=== PATIENT | male | born 1980 | race Caucasian/White ===

== ENCOUNTER 2018-01-31 19:26 | Emergency (ER) | payer BC, OTHER ==
[~2018-01-31] VITALS: Ht 182.9 cm; Wt 163.3 kg
[~2018-01-31 19:26] MED LIST: ADIPEX-P37.5 MG PO; AMBEREN; ANTIPYRINE-BENZ10 ML OT; CLOTRIMAZOLE 1%15 G1; CLOZAPINE200 MG; CYMBALTA PO; CYMBALTA60 MG PO; DIFLUCAN PO; DOXYCYCLINE 10100 MG PO; IBUPROFEN 800800 M1; NORCO 5-325 TA1 EACH PO; PRILOSEC OTC20 MG PO; ZOFRAN ODT4 MG PO
[2018-01-31 21:23] VITALS: BP 134/72
== END 2018-01-31 21:24 | disposition home or self-care (01) ==
LOC: ER 19:26
DX: S61.211A Laceration without foreign body of left index finger without damage to nail, initial encounter (principal); W26.0XXA Contact with knife, initial encounter; Y93.89 Activity, other specified; Y92.89 Other specified places as the place of occurrence of the external cause; Y99.8 Other external cause status

== ENCOUNTER 2019-03-09 20:22 | Emergency (ER) | payer BC, OTHER ==
[~2019-03-09] VITALS: Ht 182.9 cm; Wt 165.6 kg
[2019-03-09] MEDS ORDERED: MOBIC15 MG PO (22:08)
[2019-03-09] MEDS ORDERED: VALIUM5 MG PO (22:08)
[2019-03-09 23:14] VITALS: BP 118/68
== END 2019-03-09 23:14 | disposition home or self-care (01) ==
LOC: ER 20:22
DX: S34.139A Unspecified injury to sacral spinal cord, initial encounter (principal); S90.811A Abrasion, right foot, initial encounter; G47.30 Sleep apnea, unspecified; F17.210 Nicotine dependence, cigarettes, uncomplicated; Z88.8 Allergy status to other drugs, medicaments and biological substances; V49.49XA Driver injured in collision with other motor vehicles in traffic accident, initial encounter; Y93.I9 Activity, other involving external motion; Y92.410 Unspecified street and highway as the place of occurrence of the external cause; Y99.8 Other external cause status

== ENCOUNTER → 2021-04-18 | Outpatient (CLI) | payer OTHER ==
[~2021-04-18] MED LIST changes: +MOBIC15 MG PO; +VALIUM5 MG PO
== END ==
LOC: RAD 14:20
PROVIDERS: ATTEND Family Medicine
DX: M17.11 Unilateral primary osteoarthritis, right knee (principal)

== ENCOUNTER 2021-08-14 11:34 | Inpatient (IN) | payer OTHER ==
[~2021-08-14] VITALS: Ht 185.4 cm; Wt 190.5 kg
[2021-08-14 11:41] VITALS: BP 152/92
[2021-08-14 13:01] LABS: ABSOLUTE NEUTROPHILS 8.8 thou/uL (1.4-8.2); BASOPHILS 0.4 % (0.0-2.0); EOSINOPHILS 2.8 % (0.0-3.0); HEMATOCRIT 44.6 % (42.0-52.0); HEMOGLOBIN 14.6 gm/dL (14.0-18.0); LYMPHOCYTES 11.6 % (24.0-44.0); MCH 27.2 pg (26.0-34.0); MCHC 32.7 g/dL (28.0-37.0); MONOCYTES 9.3 % (1.0-8.0); PLATELET COUNT 336 thou/uL (150-400); POLYS 75.9 % (36.0-66.0); RBC 5.38 mil/uL (4.50-6.00); RDW 15.2 % (10.5-14.5); WBC 11.5 thou/uL (4.0-11.0)
[2021-08-14 13:27] LABS: ANION GAP 10 mmol/L (7-16); BUN 22 mg/dL (7-18); CALCIUM 8.6 mg/dL (8.5-10.1); CHLORIDE 97 mmol/L (98-107); CO2 29 mmol/L (21-32); CREATININE 1.3 mg/dL (0.7-1.3); GLUCOSE 170 mg/dL (74-106); POTASSIUM 3.3 mmol/L (3.5-5.1); SODIUM 136 mmol/L (136-145)
[2021-08-14 13:38] LABS: ALBUMIN 2.6 g/dL (3.4-5.0); DIRECT BILIRUBIN 0.6 mg/dL (<0.1-0.2); LIPASE 76 U/L (73-393); SGOT 125 U/L (15-37); SGPT 163 U/L (16-63); TOTAL PROTEIN 7.5 g/dL (6.4-8.2)
[2021-08-14 15:23] VITALS: BP 129/79
[2021-08-14] MEDS ORDERED: CLOZAPINE100 MG PO (16:29)
[2021-08-14] MEDS ORDERED: TRAMADOL 50 MG50 MG PO (16:32)
[2021-08-14] MEDS ORDERED: BUSPIRONE HCL10 MG PO (16:35)
[2021-08-14 16:36] VITALS: BP 148/98
[2021-08-14 17:35] LABS: URINE BILIRUBIN NEGATIVE (Negative); URINE BLOOD TRACE (Negative); URINE CLARITY CLEAR; URINE GLUCOSE-RANDOM* NEGATIVE (Negative); URINE KETONES NEGATIVE (Negative); URINE LEUKOCYTES-REFLEX NEGATIVE (Negative); URINE NITRITE-REFLEX NEGATIVE (Negative); URINE PROTEIN (DIPSTICK) TRACE (Negative)
[2021-08-14 17:36] LABS: URINE COLOR AMBER
--- NOTE | 2021-08-14 17:56 | NUR ---
PT ADMITED FROM ER. ADMISSION HX AND ASSESSMENT COMPLETED. PT ALERT AND ORIENTED. VSS. PRN PAIN MED AND NAUSIA MED GIVEN WITH PARTIAL RELIEF. NEW ORDERS NOTED. NO COMCERNS AT THIS TIME.
[2021-08-14 19:07] VITALS: BP 135/84
[2021-08-15 03:47] VITALS: BP 145/87
--- NOTE | 2021-08-15 04:40 | NUR ---
Pt. rested quietly at intervals during the night when checked on during frequent rounds. He c/o abdominal pain and ivp pain meds given (see emar) with relief noted. No c/o nausea or emesis. Assisted with urinal at the bedside.
[2021-08-15 06:20] LABS: HEMATOCRIT 41.3 % (42.0-52.0); MCH 28.2 pg (26.0-34.0); MCHC 33.9 g/dL (28.0-37.0); MCV 83.2 fL (80.0-100.0); PLATELET COUNT 313 thou/uL (150-400); RBC 4.96 mil/uL (4.50-6.00); RDW 15.1 % (10.5-14.5); WBC 8.7 thou/uL (4.0-11.0)
[2021-08-15 06:46] LABS: ALBUMIN 2.6 g/dL (3.4-5.0); CALCIUM 8.5 mg/dL (8.5-10.1); POTASSIUM 3.3 mmol/L (3.5-5.1); TOTAL BILIRUBIN 0.9 mg/dL (0.2-1.0); TOTAL PROTEIN 7.4 g/dL (6.4-8.2)
--- NOTE | 2021-08-15 07:13 | EKG ---
[address] [address] ELECTROCARDIOGRAM REPORT Name: SHELBY HITCHCOCK Room #: 450-P ADM IN M.R.#: [id number] Admission: 08/14/21 Attend Phys: Alex Wheeler MD, FAAF Discharge: Date of : 84 Report #: [id number] [facility] ED Test Date: 2021-08-14 Test Time: 12:15:19 Pat Name: SHELBY HITCHCOCK Department: Room: 450 Gender: M Claim Analyst: edinson : 1980 Requested By: Nash Shah Order Number: [id number] MD: Cornelius Rivera Measurements Intervals [place] Rate: 115 P: 64 FL: 145 QRS: 79 QRSD: 112 T: 39 QT: 386 QTc: 534 Interpretive Statements Sinus tachycardia Borderline intraventricular conduction delay Prolonged QT interval Compared to ECG 08/19/2016 07:45:22 Prolonged QT interval now present Sinus rhythm no longer present Electronically Signed On 08-15-2021 7:12:46 CDT by Cornelius Rivera [email or web address] <ELECTRONICALLY SIGNED> By: Cornelius Rivera MD, [facility] 08/15/21 0712 1215 121 Cornelius Rivera MD, FACC /EPI
[2021-08-15 08:59] VITALS: BP 134/74
[2021-08-15 09:44] LABS: ABSOLUTE NEUTROPHILS 6.8 thou/uL (1.4-8.2)
[2021-08-15 09:45] LABS: ANISOCYTOSIS SLIGHT
--- NOTE | 2021-08-15 15:09 | NUR ---
ASSUMED CARE AT SHIFT CHANGE. PT A/O X 4, C/O RUQ AND LUQ ABD PAIN WITH NAUSEA TODAY. CONTROLLED WITH PRN MEDS, NO VOMITING THUS FAR TODAY. PAIN RELIEF WITH REPOSITIONING ALSO. BM T-5 DAYS AGO. WILL REQUEST PRN MEDS. VOIDING PER URINAL- DARK ERICK UO. ASSESSMENTS PER CHART. LABS NOTED. PT DIAPHORETIC THIS AFETERNOON, STATES ROOM IS HOT. AC DOES NOT SEEM TO BE WORKING, MAINTENACE ORDER PLACED. FAN ON FOR PT COMFORT. DENIES ANY OTHER NEEDS. WILL CONT TO MONITOR AND FOLLOW POC.
--- NOTE | 2021-08-15 15:13 | NUR ---
PT ADMITTED RELATED TO ABD PAIN, NAUSEA, VOMITING, PANCREATITIS. CM REVIEWED CHART AND SPOKE WITH CARE TEAM. CM MET WITH PT AT BEDSIDE THIS DAY. PT APPEARED TO BE A&O X4. CM ROLE INTRODUCED. PT INDICATED HE LIVES IN A HOUSE WITH HIS PARENTS AND BROTHERS. PT RESIDES IN THE BASEMENT THERE ARE 13 STEP DOWN AND 2 TO ENTER THE HOME. PT INDICATED HE HAD BEEN USING A CANE TO ASSIST WITH MOBILITY DIRECTOR PROSPECT FOLLOWING A KNEE SURGERY AND HAD BEEN DOING OP PT AT [facility] ON [address]. PT INDICATED HE HAS A CPAP FOR HOME USE. PT PLANS TO RETURN HOME ONCE MEDICALLY STABLE AND RESUME OP PT. CM FOLLOWING REGARDING DC PLANNING.
[2021-08-15 15:44] VITALS: BP 154/101
[2021-08-15 20:04] VITALS: BP 118/75
--- NOTE | 2021-08-16 02:41 | NUR ---
PT IS A/O X4 AND IS UP WITH SBA TO THE BR. USES A URINAL AT THE BEDSIDE. ROOM AIR, VSS AFEBRILE. C/O PAIN. PRN PAIN MEDICATION GIVEN DIRECTED. PT IS PLEASANT AND COOPERATIVE. FALL PRECUATIONS IN PLACE,CALL LIGHT IS WITHIN REACH. PT CALLS OUT APPROPRIATELY FOR ASSISTANCE.
[2021-08-16 05:26] LABS: HEMATOCRIT 38.6 % (42.0-52.0); HEMOGLOBIN 13.3 gm/dL (14.0-18.0); MCH 28.8 pg (26.0-34.0); MCHC 34.5 g/dL (28.0-37.0); MCV 83.7 fL (80.0-100.0); PLATELET COUNT 306 thou/uL (150-400); RBC 4.61 mil/uL (4.50-6.00); WBC 6.1 thou/uL (4.0-11.0)
[2021-08-16 05:38] LABS: ALBUMIN 2.5 g/dL (3.4-5.0); CALCIUM 8.6 mg/dL (8.5-10.1); CREATININE 0.9 mg/dL (0.7-1.3); POTASSIUM 3.3 mmol/L (3.5-5.1); TOTAL BILIRUBIN 0.6 mg/dL (0.2-1.0)
[2021-08-16 07:32] VITALS: BP 155/91
[2021-08-16 13:28] LABS: ABSOLUTE NEUTROPHILS 3.9 thou/uL (1.4-8.2)
--- NOTE | 2021-08-16 13:45 | NUR ---
Alert and orientated X 4. States he is nauseated and has upper abdominal pain 6 and then 8/10. Medicated with zofran and morphine with partial relief. Up to chair with cane. Went to xray for exam. Breath sounds clear. Becomes slightly short of breath with exertion. Reg HR auscultated. Color pink with brisk capillary refill and palpable peripheral pulses. Tashia urine per urinal. Active bowel sounds over large firm abdomen. States last BM was 5 days ago. IV per L AC soft, IVF infusing at 100cc/hr. Eating ice chips.
[2021-08-16 14:49] VITALS: BP 150/92
--- NOTE | 2021-08-16 15:43 | NUR ---
PT HAD LAB AND KUB THIS DAY. CM FOLLOWING CRISTIAN MARTINEZ PLANNING.
[2021-08-16 20:59] VITALS: BP 154/104
[2021-08-17 06:14] LABS: HEMATOCRIT 38.6 % (42.0-52.0); HEMOGLOBIN 12.8 gm/dL (14.0-18.0); MCHC 33.3 g/dL (28.0-37.0); MCV 84.1 fL (80.0-100.0); PLATELET COUNT 303 thou/uL (150-400); RBC 4.59 mil/uL (4.50-6.00); RDW 15.2 % (10.5-14.5); WBC 7.2 thou/uL (4.0-11.0)
[2021-08-17 06:42] LABS: ALBUMIN 2.4 g/dL (3.4-5.0); CALCIUM 8.4 mg/dL (8.5-10.1); CREATININE 0.9 mg/dL (0.7-1.3); POTASSIUM 3.4 mmol/L (3.5-5.1); TOTAL BILIRUBIN 0.5 mg/dL (0.2-1.0); TOTAL PROTEIN 6.8 g/dL (6.4-8.2)
[2021-08-17 07:00] VITALS: BP 151/78
--- NOTE | 2021-08-17 07:35 | NUR ---
Pt. rested quietly at intervals during the night when checked on during frequent rounds. He has been given ivp pain meds for c/o abominal pain (see emar) with some relief noted. Also, given zofran for nausea (see emar) with relief. NG tube patent to the left nare with minimal output overnight.
--- NOTE | 2021-08-17 09:08 | NUR ---
Assess due to dx pancreatitis and ileus. Has been npo x 3 days and also with poor oral intake several days prior admit. PMH; bipolar, pancreatitis and class III extreme obesity with BMI 55.4. NGT was placed on 08/16, minimal output was documented last night. On D5 ivf. Hypokalemic, K+ 3.4. May want to consider add KCL in IVF or possibly change to clinimix PPN if pt unable to advance diet in next 48hr. Low nutrition risk, but will followup again on Friday for diet advance
[2021-08-17 10:34] LABS: ABSOLUTE NEUTROPHILS 4.6 thou/uL (1.4-8.2); ANISOCYTOSIS SLIGHT; METAMYELOCYTES 2 %
--- NOTE | 2021-08-17 15:43 | NUR ---
CARE TEAM INDICATED THAT IT IS ANTICPATED THAT PT WILL LIKELY BE HERE OVER THE WEEKEND. NG WAS PLACED. CM FOLLOWING REGARDING DC PLANNING.
[2021-08-17 17:24] VITALS: BP 123/88
[2021-08-17 19:46] VITALS: BP 138/83
--- NOTE | 2021-08-18 06:12 | NUR ---
Pt. rested quietly at intervals during the night when checked on during frequent rounds. Ng tube was found out and new one was reinserted. Awaitng kub results. Pain meds and nausea meds given (see emar).
[2021-08-18 07:00] VITALS: BP 171/88
[2021-08-18 08:32] LABS: CHOLESTEROL 157 mg/dL (<200); HDL CHOLESTEROL 29 mg/dL (>40); LDL CHOLESTEROL 104 mg/dL (<100); TC:HDL 5.4 Ratio (Not establshd); TRIGLYCERIDE 120 mg/dL (<150); VLDL 24 mg/dL (<40)
[2021-08-18 19:48] VITALS: BP 129/54
--- NOTE | 2021-08-18 19:53 | NUR ---
REMOVED NG PER DR ORDERS. PT TOLERATED CLEAR LIQUID DIET WELL.
[2021-08-19 04:48] LABS: ABSOLUTE NEUTROPHILS 7.1 thou/uL (1.4-8.2); BASOPHILS 0.3 % (0.0-2.0); HEMOGLOBIN 12.1 gm/dL (14.0-18.0); MCH 27.7 pg (26.0-34.0); MCHC 32.9 g/dL (28.0-37.0); MCV 84.3 fL (80.0-100.0); PLATELET COUNT 298 thou/uL (150-400); POLYS 66.7 % (36.0-66.0); RBC 4.39 mil/uL (4.50-6.00); RDW 14.6 % (10.5-14.5); WBC 10.6 thou/uL (4.0-11.0)
[2021-08-19 05:05] LABS: ALBUMIN 2.3 g/dL (3.4-5.0); CALCIUM 8.2 mg/dL (8.5-10.1); CREATININE 0.8 mg/dL (0.7-1.3); MAGNESIUM 2.1 mg/dL (1.8-2.4); POTASSIUM 3.5 mmol/L (3.5-5.1); TOTAL BILIRUBIN 0.6 mg/dL (0.2-1.0); TOTAL PROTEIN 6.3 g/dL (6.4-8.2)
[2021-08-19 07:42] VITALS: BP 142/88
--- NOTE | 2021-08-19 08:12 | NUR ---
patient aox4 makes needs known. patient had clear liquids this shift and tolerated well.patient had c pap at night. patient denied pain or discomfort. patient in bed asleep at this time breathing regular and unlaboured.
[2021-08-19 15:39] VITALS: BP 141/102
[2021-08-19 20:38] VITALS: BP 123/58
--- NOTE | 2021-08-20 04:41 | NUR ---
ASSUMED CARES AT 1900, PT ENCOURAGED TO WEAR CPAP BEFORE SLEEPING, COMPLIANT TO TX, NO ADVERSE REACTION NOTED, SLEPT THROUGH THE NIGHT, TOILETED NEEDED, LAYING COMFORTABLY IN BED, REPORTS NO PAIN OR DISCOMFORT WILL CONTINUE TO MONITOR.
[2021-08-20 05:02] LABS: ABSOLUTE NEUTROPHILS 7.7 thou/uL (1.4-8.2); ALBUMIN 2.3 g/dL (3.4-5.0); BASOPHILS 0.3 % (0.0-2.0); CALCIUM 8.4 mg/dL (8.5-10.1); CREATININE 0.8 mg/dL (0.7-1.3); EOSINOPHILS 2.8 % (0.0-3.0); HEMATOCRIT 36.5 % (42.0-52.0); HEMOGLOBIN 12.2 gm/dL (14.0-18.0); LYMPHOCYTES 21.4 % (24.0-44.0); MCH 27.8 pg (26.0-34.0); MCHC 33.4 g/dL (28.0-37.0); MONOCYTES 7.6 % (1.0-8.0); PLATELET COUNT 309 thou/uL (150-400); POLYS 67.9 % (36.0-66.0); POTASSIUM 3.6 mmol/L (3.5-5.1); RBC 4.39 mil/uL (4.50-6.00); RDW 15.1 % (10.5-14.5); WBC 11.3 thou/uL (4.0-11.0)
[2021-08-20 05:20] LABS: TOTAL BILIRUBIN 0.5 mg/dL (0.2-1.0); TOTAL PROTEIN 6.4 g/dL (6.4-8.2)
[2021-08-20 07:06] VITALS: BP 145/107
--- NOTE | 2021-08-20 15:01 | NUR ---
PT ADVANCED TO FULL LIQUID DIET. CM FOLLOWING REGARDING DC PLANNING NEEDS. IT IS ANTICIPATED THAT PT WILL BE ABLE TO DC HOME TO SELF CARE ONCE MEDICALLY STABLE.
[2021-08-20 15:07] VITALS: BP 146/94
[2021-08-20 19:17] VITALS: BP 143/98
--- NOTE | 2021-08-21 05:19 | NUR ---
patient aox4, patient has a flat affect, poor eye contact, poor grooming and hygiene. patient do not interact with staff, answers questions when asked with minimal interaction.patient declined ambulating in the room and wanted to sleep. patient encouraged c pap. patient encouraged fluids. patient is up at zainab. patient in bed asleep at this time breathing regular and unlaboured.
[2021-08-21 07:48] VITALS: BP 148/79
[2021-08-21 19:57] VITALS: BP 137/82
--- NOTE | 2021-08-21 20:56 | NUR ---
Assumed pt care this am, went down for CT. POC followed, pain manged with medication partial relief is noted. Pt was trasnferred to room 464 d/t toilet needing to be fixed. Pt was encouraged to take a bath since pt was unkept, bath was taken. Pt does not want to ambulate the halls. POC followed, endorsed to the night nurse.
--- NOTE | 2021-08-22 03:05 | NUR ---
CARE ASSUMED AT 1900 PATIENT WAS IN BED ASLEEP.PATIENT ENCOURAGED C PAP WHEN ASLEEP. PATIENT IS UP AT TOMER. PATIENT WAS CALM AND COOPERATIVE WITH MEDS AND CARE. FLUIDS OFERED. PATIENT IN BED ASLEEP AT THIS TIME BREATHING REGULAR AND UNLABOURED.
[2021-08-22 06:09] LABS: ABSOLUTE NEUTROPHILS 6.6 thou/uL (1.4-8.2); BASOPHILS 0.6 % (0.0-2.0); EOSINOPHILS 2.7 % (0.0-3.0); HEMATOCRIT 37.9 % (42.0-52.0); HEMOGLOBIN 12.6 gm/dL (14.0-18.0); LYMPHOCYTES 21.6 % (24.0-44.0); MCH 27.6 pg (26.0-34.0); MCHC 33.2 g/dL (28.0-37.0); MCV 83.4 fL (80.0-100.0); MONOCYTES 8.1 % (1.0-8.0); PLATELET COUNT 306 thou/uL (150-400); RBC 4.55 mil/uL (4.50-6.00); RDW 14.7 % (10.5-14.5); WBC 9.8 thou/uL (4.0-11.0)
[2021-08-22 06:35] LABS: ALBUMIN 2.4 g/dL (3.4-5.0); CALCIUM 8.5 mg/dL (8.5-10.1); CREATININE 0.8 mg/dL (0.7-1.3); POTASSIUM 3.7 mmol/L (3.5-5.1); TOTAL BILIRUBIN 0.5 mg/dL (0.2-1.0); TOTAL PROTEIN 6.7 g/dL (6.4-8.2)
[2021-08-22 08:00] VITALS: BP 156/101
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
--- NOTE | 2021-08-22 16:04 | NUR ---
Care team indicated that pt is progressing slowly toward goal of discharging home. Care team indicated to continue full liquids; may have to regress to clears or npo am lab, track lipase (rising, now upper range of normal). General Surgery consult working. PT eval & tx. Cm following regarding dc planning.
[2021-08-22 17:17] VITALS: BP 152/86
--- NOTE | 2021-08-22 18:37 | NUR ---
Assumed pt care at 7am.Pt in bed sleeping with c pap on. Assessment completed vss.Am meds given and well tolerated. Pt ambulated in hallways x2 today. Dr perez here,order noted. No verbal c/o. Will continue to monitor.
[2021-08-22 19:55] VITALS: BP 142/80
[2021-08-23 05:46] LABS: ABSOLUTE NEUTROPHILS 7.4 thou/uL (1.4-8.2); BASOPHILS 0.4 % (0.0-2.0); EOSINOPHILS 3.2 % (0.0-3.0); HEMATOCRIT 38.7 % (42.0-52.0); HEMOGLOBIN 13.1 gm/dL (14.0-18.0); LYMPHOCYTES 18.2 % (24.0-44.0); MCH 28.1 pg (26.0-34.0); MCHC 33.8 g/dL (28.0-37.0); MCV 83.2 fL (80.0-100.0); MONOCYTES 7.3 % (1.0-8.0); PLATELET COUNT 322 thou/uL (150-400); POLYS 70.9 % (36.0-66.0); RBC 4.65 mil/uL (4.50-6.00); RDW 15.1 % (10.5-14.5); WBC 10.4 thou/uL (4.0-11.0)
[2021-08-23 06:19] LABS: ALBUMIN 2.6 g/dL (3.4-5.0); CALCIUM 8.8 mg/dL (8.5-10.1); CREATININE 0.9 mg/dL (0.7-1.3); TOTAL BILIRUBIN 0.4 mg/dL (0.2-1.0); TOTAL PROTEIN 7.2 g/dL (6.4-8.2)
--- NOTE | 2021-08-23 06:39 | NUR ---
Assumed pt care at 1900. A/OX4,VSS. C/o abd pain 05/29,nausea w/o emesis reported. Continues on a full liquid diet,and reports diarrhea yesterday. Up ad zainab w/o any problems. Resting w/o any distress CPAP in place,will continue to monitor pt.
[2021-08-23 08:05] VITALS: BP 147/93
--- NOTE | 2021-08-23 10:47 | NUR ---
ORDERS RECEIVED FOR EVAL AND TREAT. NURSING NOTES SAY Pt IS UP AD TOMER. SPOKE WITH Pt WHO STATES HE IS GETTING UP BY HIMSELF AND WALKED AROUND IN THE HALLS WITH HIS MOM AND HIS CANE YESTERDAY WITHOUT DIFFICULTY. Pt STATES HE WILL CONTINUE TO WALK SEVERAL TIMES A DAY ON HIS OWN. Pt DECLINING A FORMAL P.T. EVAL BUT APPEARS SAFE FOR HOME WHEN MEDICALLY CLEAR
[2021-08-23 16:28] VITALS: BP 133/77
--- NOTE | 2021-08-23 19:21 | NUR ---
Assumed pt care this am, received on the chair. VS stable, no pain is noted was able to walk the halls on his own with a steady gait. Maintained on a full liquid diet as per MD and might advance tomorrow depending on labs. POC followed with ni signs or verbalizations of distress noted. endorsed to the night nurse.
[2021-08-23 19:55] VITALS: BP 146/92
--- NOTE | 2021-08-24 02:07 | NUR ---
Assumed pt care at 1900. A/OX4,VSS. C/o nausea at HS medicated per EMAR with relief reported. Denies pain on assessment. Up ad zainab w/o problems,offered shower at HS but declines stating he's tired and will do it tomorrow morning. Resting quietly at this time w/o any distress,CPAP in place will continue to monitor,
[2021-08-24 06:11] LABS: ABSOLUTE NEUTROPHILS 7.2 thou/uL (1.4-8.2); BASOPHILS 0.4 % (0.0-2.0); EOSINOPHILS 2.9 % (0.0-3.0); HEMOGLOBIN 13.1 gm/dL (14.0-18.0); LYMPHOCYTES 18.9 % (24.0-44.0); MCHC 33.6 g/dL (28.0-37.0); MCV 83.2 fL (80.0-100.0); MONOCYTES 7.1 % (1.0-8.0); PLATELET COUNT 298 thou/uL (150-400); POLYS 70.7 % (36.0-66.0); RBC 4.69 mil/uL (4.50-6.00); RDW 15.3 % (10.5-14.5); WBC 10.3 thou/uL (4.0-11.0)
[2021-08-24 06:46] LABS: ALBUMIN 2.6 g/dL (3.4-5.0); CALCIUM 8.8 mg/dL (8.5-10.1); CREATININE 0.9 mg/dL (0.7-1.3); TOTAL BILIRUBIN 0.5 mg/dL (0.2-1.0); TOTAL PROTEIN 7.1 g/dL (6.4-8.2)
[2021-08-24 07:45] VITALS: BP 108/71
--- NOTE | 2021-08-24 10:39 | NUR ---
Nutrition: at follow up lipase WNL. Pt tolerating full liquids, intake 100%. Diet to possibly advance today. Albumin 2.6. Meds reviewed. No recent wt available. Continues at low nutrition risk.
--- NOTE | 2021-08-24 15:45 | NUR ---
PT ASSESSED PT AND INDICATED NO NEED HE IS UP AD TOMER. PT IS ANTICPATED THAT PT WILL BE ABLE TO RETURN HOME TO SELF CARE ONCE MEDICALLY STABLE. CM FOLLOWING SHOULD ANY DC NEEDS ARISE.
[2021-08-24 18:04] VITALS: BP 110/61
[2021-08-24 19:45] VITALS: BP 146/92
--- NOTE | 2021-08-24 20:18 | NUR ---
Assumed pt care this am vs stable, took a shower today and walked the halls. POC followed with no signs or verbalizatios of distress noted. Endorsed to the night nurse.
[2021-08-25 00:32] VITALS: BP 148/78
[2021-08-25 05:59] LABS: HEMATOCRIT 40.5 % (42.0-52.0); HEMOGLOBIN 13.1 gm/dL (14.0-18.0); MCH 27.2 pg (26.0-34.0); MCHC 32.3 g/dL (28.0-37.0); MCV 84.4 fL (80.0-100.0); RBC 4.8 mil/uL (4.50-6.00); RDW 15.1 % (10.5-14.5); WBC 9.3 thou/uL (4.0-11.0)
--- NOTE | 2021-08-25 06:07 | NUR ---
ASSUMED CARE AT 1900, PT REPORTS NO PAIN OR DISCOMFORT, CALL LIGHT WITHIN REACH,EDUCATION REINFORCED ON KEEPING THE CPAP ON WHEN SLEEPING, PT COMPLIANT TO TX, NO ADVERSE REACTION NOTED, WILL CONTINUE TO MONITOR.
[2021-08-25 06:21] LABS: ALBUMIN 2.5 g/dL (3.4-5.0); CALCIUM 8.6 mg/dL (8.5-10.1); CREATININE 0.9 mg/dL (0.7-1.3); POTASSIUM 4.1 mmol/L (3.5-5.1); TOTAL BILIRUBIN 0.3 mg/dL (0.2-1.0); TOTAL PROTEIN 7.1 g/dL (6.4-8.2)
[2021-08-25 07:48] VITALS: BP 138/74
--- NOTE | 2021-08-25 13:45 | NUR ---
Pt A & O x4. Pt VS stable. Pt is room air. Pt received medications as ordered. Pt is independent with cares and ADLs and is up ad zainab. Pt received discharge orders to home. Discharge instructions reviewed with pt and pt verbalized understanding and signed instructions. Pt wheeled to enterence in wheelchair by staff with personal belongings and discharge instructions and left hospital without incident in private vehicle.
== END 2021-08-25 15:38 | disposition home or self-care (01) | DRG 439 ==
LOC: ER 11:34 → EROBS 14:05 → 4W 14:05
PROVIDERS: Internal Medicine; Student in an Organized Health Care Education/Training Program; Surgery; ADMIT Hospitalist; ATTEND Family Medicine
DX: K85.90 Acute pancreatitis without necrosis or infection, unspecified (principal); K56.7 Ileus, unspecified; D72.829 Elevated white blood cell count, unspecified; R74.01 Elevation of levels of liver transaminase levels; E87.6 Hypokalemia; E66.01 Morbid (severe) obesity due to excess calories; F31.9 Bipolar disorder, unspecified; Z88.8 Allergy status to other drugs, medicaments and biological substances; Z87.828 Personal history of other (healed) physical injury and trauma

== ENCOUNTER → 2021-10-05 | Outpatient (CLI) | payer OTHER ==
[~2021-10-05] MED LIST changes: +BUSPIRONE HCL10 MG PO; +CLOZAPINE100 MG PO; +TRAMADOL 50 MG50 MG PO
== END ==
LOC: CAT 10:41
PROVIDERS: ATTEND Surgery
DX: K86.3 Pseudocyst of pancreas (principal)